=== PATIENT | male | born 1950 | race Caucasian/White ===

== ENCOUNTER 2021-06-20 10:04 | Outpatient (CLI) | payer MEDICARE, SELFPAY ==
[2021-06-20 11:34] LABS: SARS-CoV-2 RNA PCR Negative (Negative)
== END 2021-06-20 10:05 | disposition home or self-care (01) ==
LOC: CHSLAB 10:10
PROVIDERS: PCP Internal Medicine; Visit Provider Family Medicine
DX: Z01.818 Encounter for other preprocedural examination (principal); Z20.822 Contact with and (suspected) exposure to COVID-19
CPT/HCPCS: C9803; U0003; U0005

== ENCOUNTER 2021-07-04 07:40 | Outpatient (CLI) | payer MEDICARE, SELFPAY ==
[2021-07-04 09:51] LABS: SARS-CoV-2 RNA PCR Negative (Negative)
== END 2021-07-04 07:41 | disposition home or self-care (01) ==
LOC: CHSLAB 07:45
PROVIDERS: PCP Internal Medicine; Visit Provider Family Medicine
DX: Z01.818 Encounter for other preprocedural examination (principal); Z20.822 Contact with and (suspected) exposure to COVID-19
CPT/HCPCS: C9803; U0003; U0005

== ENCOUNTER 2021-07-18 08:18 | Outpatient (CLI) | payer MEDICARE, SELFPAY ==
[2021-07-18 09:57] LABS: SARS-CoV-2 RNA PCR Negative (Negative)
== END 2021-07-18 08:19 | disposition home or self-care (01) ==
LOC: CHSLAB 08:21
PROVIDERS: PCP Internal Medicine; Visit Provider Family Medicine
DX: Z01.818 Encounter for other preprocedural examination (principal); Z20.822 Contact with and (suspected) exposure to COVID-19
CPT/HCPCS: C9803; U0003; U0005